=== PATIENT | male | born 1980 | race Caucasian/White ===

== ENCOUNTER 2019-11-01 13:19 | Emergency (ER) | payer SELFPAY ==
[~2019-11-01] VITALS: Ht 172.7 cm; Wt 81.8 kg
[~2019-11-01 13:19] MED LIST: KLONOPIN1 MG PO; NORCO 7.5-3251 EACH PO; PHENERGAN25 M1 PO; STOOL SOFTENER250 MG PO
[2019-11-01 13:44] VITALS: Ht 172.7 cm; Wt 81.8 kg
[2019-11-01] MEDS ORDERED: LISINOPRIL20 MG PO (13:45)
[2019-11-01] MEDS ORDERED: OXYCONTIN15 MG PO (13:46)
[2019-11-01] MEDS ORDERED: VALIUM5 MG PO (13:46)
[2019-11-01] MEDS ORDERED: NORVASC10 MG PO (13:47)
[2019-11-01] MEDS ORDERED: OMEPRAZOLE20 M1 PO (13:48)
[2019-11-01 14:40] LABS: HEMATOCRIT 44.3 % (42.0-54.0); HEMOGLOBIN 14.6 g/dL (13.5-17.5); LYMPHOCYTES 7.4 % (15-50); MCV 87.9 fL (80.0-100.0); MEAN PLATELET VOLUME 10.9 fL (7.4-10.4); NEUTROPHILS 84.4 % (40-80); PLATELET COUNT 246 10x3/uL (130-400); RBC 5.04 10x6/uL (4.20-6.10); RDW 13.4 % (11.5-14.5); WBC 10.3 10x3/uL (4.8-10.8)
[2019-11-01 14:47] LABS: ANION GAP 16.1 mmol/L (8-16); CALCIUM 9.4 mg/dL (8.5-10.1); CARBON DIOXIDE 25.4 mmol/L (21.0-32.0); CREATININE - SERUM 2.3 mg/dL (0.6-1.3); POTASSIUM - SERUM 5.5 mmol/L (3.5-5.1)
[2019-11-01 14:50] LABS: BILIRUBIN NEGATIVE (NEGATIVE); GLUCOSE NEGATIVE (NEGATIVE); KETONE NEGATIVE (NEGATIVE); NITRITE NEGATIVE (NEGATIVE); SPECIFIC GRAVITY 1.015 (1.005-1.020); UROBILINOGEN NORMAL (NORMAL)
[2019-11-01 14:53] LABS: ALBUMIN 4.4 g/dL (3.4-5.0); BILIRUBIN - TOTAL 0.45 mg/dL (0.2-1.3); PROTEIN - SERUM 8.2 g/dL (6.4-8.2)
[2019-11-01 15:11] LABS: CREATINE KINASE 262 UL (21-232)
[2019-11-01 15:19] LABS: CKMB 3.3 U/L (0.0-3.6)
[2019-11-01 17:31] VITALS: BP 137/96
== END 2019-11-01 17:32 | disposition home or self-care (01) ==
LOC: D.ER 13:19
PROVIDERS: Family Medicine
DX: E86.0 Dehydration (principal); I10 Essential (primary) hypertension; R52 Pain, unspecified; K21.9 Gastro-esophageal reflux disease without esophagitis

== ENCOUNTER 2019-12-08 18:54 | Emergency (ER) | payer OTHER ==
[~2019-12-08] VITALS: Ht 172.7 cm; Wt 81.8 kg
[~2019-12-08 18:54] MED LIST changes: +LISINOPRIL20 MG PO; +NORVASC10 MG PO; +OMEPRAZOLE20 M1 PO; +OXYCONTIN15 MG PO; +VALIUM5 MG PO
[2019-12-08 18:59] VITALS: Ht 172.7 cm; Wt 81.8 kg
[2019-12-08 20:46] LABS: BILIRUBIN NEGATIVE (NEGATIVE); GLUCOSE NEGATIVE (NEGATIVE); KETONE NEGATIVE (NEGATIVE); NITRITE NEGATIVE (NEGATIVE); UROBILINOGEN NORMAL (NORMAL)
[2019-12-08 21:42] LABS: UDS - AMPHET NEGATIVE QUAL (NEGATIVE); UDS - BARB NEGATIVE QUAL (NEGATIVE); UDS - BENZO NEGATIVE QUAL (NEGATIVE); UDS - COCAINE NEGATIVE QUAL (NEGATIVE); UDS - OPIATE NEGATIVE QUAL (NEGATIVE); UDS - PCP NEGATIVE QUAL (NEGATIVE); UDS - THC NEGATIVE QUAL (NEGATIVE)
[2019-12-08 21:58] VITALS: BP 132/84
== END 2019-12-08 21:59 | disposition home or self-care (01) ==
LOC: D.ER 18:54
PROVIDERS: Emergency Medicine
DX: T14.8XXA Other injury of unspecified body region, initial encounter (principal); S70.02XA Contusion of left hip, initial encounter; V29.40XA Motorcycle driver injured in collision with unspecified motor vehicles in traffic accident, initial encounter; Y93.9 Activity, unspecified; Y92.9 Unspecified place or not applicable; M54.5 Low back pain; M79.602 Pain in left arm; I10 Essential (primary) hypertension; K21.9 Gastro-esophageal reflux disease without esophagitis

== ENCOUNTER 2019-12-13 17:48 | Emergency (ER) | payer SELFPAY ==
[~2019-12-13] VITALS: Ht 172.7 cm; Wt 81.8 kg
[2019-12-13 17:55] VITALS: Ht 172.7 cm; Wt 81.8 kg
[2019-12-13 22:46] VITALS: BP 130/84
== END 2019-12-13 22:47 | disposition home or self-care (01) ==
LOC: D.ER 17:48
DX: S70.02XA Contusion of left hip, initial encounter (principal); V29.60XA Unspecified motorcycle rider injured in collision with unspecified motor vehicles in traffic accident, initial encounter; I10 Essential (primary) hypertension; K21.9 Gastro-esophageal reflux disease without esophagitis

== ENCOUNTER 2019-12-14 14:23 | Observation (INO) | payer OTHER ==
[~2019-12-14] VITALS: Ht 172.7 cm; Wt 81.8 kg
[2019-12-14 16:53] LABS: BASOPHILS 0.2 % (0-2); EOSINOPHILS 1.8 % (0-7); HEMATOCRIT 44.3 % (42.0-54.0); HEMOGLOBIN 14.4 g/dL (13.5-17.5); IMMATURE GRANULOCYTES 0.2 % (0-5); LYMPHOCYTES 35.2 % (15-50); MCH 28.9 pg (26.0-34.0); MCHC 32.5 g/dL (31.0-37.0); MEAN PLATELET VOLUME 10.8 fL (7.4-10.4); MONOCYTES 8.6 % (2-11); PLATELET COUNT 243 10x3/uL (130-400); RBC 4.98 10x6/uL (4.20-6.10); RDW 13.5 % (11.5-14.5); WBC 6.1 10x3/uL (4.8-10.8)
[2019-12-14 17:00] LABS: CALCIUM 8.9 mg/dL (8.5-10.1); CARBON DIOXIDE 28.2 mmol/L (21.0-32.0); CREATININE - SERUM 1.3 mg/dL (0.6-1.3); POTASSIUM - SERUM 4.2 mmol/L (3.5-5.1)
[2019-12-14 17:06] LABS: ALBUMIN 4.2 g/dL (3.4-5.0); BILIRUBIN - TOTAL 0.42 mg/dL (0.2-1.3); PROTEIN - SERUM 7.8 g/dL (6.4-8.2)
[2019-12-14 17:14] LABS: APTT 26.8 SECONDS (22.8-39.4); INR 0.97 (0.85-1.17); PROTIME 12.8 SECONDS (11.6-15.0)
[2019-12-14 20:08] VITALS: BP 122/63
[2019-12-14 20:14] LABS: BILIRUBIN NEGATIVE (NEGATIVE); KETONE NEGATIVE (NEGATIVE); NITRITE NEGATIVE (NEGATIVE); UROBILINOGEN NORMAL (NORMAL)
[2019-12-14 23:46] VITALS: BP 136/94
[2019-12-15] VITALS (8 sets, daily range): BP systolic 127–152; BP diastolic 87–103; Ht 172.7 cm; Wt 81.8 kg
--- NOTE | 2019-12-15 01:04 | NUR ---
contact infor [phone]
[2019-12-15 07:14] LABS: BASOPHILS 0.2 % (0-2); EOSINOPHILS 1.9 % (0-7); HEMATOCRIT 42.5 % (42.0-54.0); HEMOGLOBIN 13.5 g/dL (13.5-17.5); IMMATURE GRANULOCYTES 0.2 % (0-5); LYMPHOCYTES 35.4 % (15-50); MCH 28.4 pg (26.0-34.0); MCHC 31.8 g/dL (31.0-37.0); MCV 89.3 fL (80.0-100.0); MEAN PLATELET VOLUME 11.2 fL (7.4-10.4); MONOCYTES 8.7 % (2-11); NEUTROPHILS 53.6 % (40-80); PLATELET COUNT 226 10x3/uL (130-400); RBC 4.76 10x6/uL (4.20-6.10); RDW 13.4 % (11.5-14.5); WBC 4.7 10x3/uL (4.8-10.8)
[2019-12-15 08:02] LABS: CALC OSMOLALITY 280 mosm/kg (275-300); CALCIUM 9.1 mg/dL (8.5-10.1); CHLORIDE - SERUM 106 mmol/L (98-107); CREATININE - SERUM 1.1 mg/dL (0.6-1.3); GLUCOSE 92 mg/dL (74-106); MAGNESIUM - SERUM 2.3 mg/dL (1.8-2.4); PHOSPHOROUS 3.5 mg/dL (2.5-4.9); POTASSIUM - SERUM 4.5 mmol/L (3.5-5.1); SODIUM 139 mmol/L (136-145); UREA NITROGEN 20 mg/dL (7-18); eGFR NON AFRICAN AMERICAN 78 mL/min (90-120)
--- NOTE | 2019-12-15 10:20 | NUR ---
PT REQUESTED IV RESITED TD/T LOCATION
--- NOTE | 2019-12-15 13:45 | NUR ---
RECIEVED PT FROM ER. PT A&O X4. PIV IN LEFT FOREARM, S/L, NO REDNESS OR SWELLING. PT C/O PAIN /. EDUCATED PT ON ISP USE AFTER PROCEDURE AND CL AND NEEDS, VERBALIZED UNDERSTANDING. BED LOW, RAILS X2. CL IN REACH. WILL CONTINUE TO MONITOR.
--- NOTE | 2019-12-15 13:47 | NUR ---
REPORT TO JOHNNIE KURTZ
--- NOTE | 2019-12-15 14:00 | NUR ---
ADMIT TO ROOM #1212, CONDITION STABLE
--- NOTE | 2019-12-15 17:35 | NUR ---
PT REFUSES TO SIGN PROCEDURE CONSENT UNTIL HE SPEAKS WITH SURGEON. PT REFUSES BLOOD CONSENT DUE TO RELIGOUS REASONS. PT SIGNED ALL OTHER CONSENTS.
[2019-12-16] VITALS (12 sets, daily range): BP systolic 103–136; BP diastolic 56–89
[2019-12-16 06:45] LABS: BASOPHILS 0.2 % (0-2); EOSINOPHILS 2.1 % (0-7); HEMATOCRIT 42.8 % (42.0-54.0); IMMATURE GRANULOCYTES 0.2 % (0-5); LYMPHOCYTES 31.8 % (15-50); MCH 28.7 pg (26.0-34.0); MCHC 32.7 g/dL (31.0-37.0); MCV 87.7 fL (80.0-100.0); MEAN PLATELET VOLUME 10.9 fL (7.4-10.4); MONOCYTES 10.9 % (2-11); NEUTROPHILS 54.8 % (40-80); PLATELET COUNT 226 10x3/uL (130-400); RBC 4.88 10x6/uL (4.20-6.10); RDW 13.2 % (11.5-14.5); WBC 4.8 10x3/uL (4.8-10.8)
[2019-12-16 06:56] LABS: CALC OSMOLALITY 278 mosm/kg (275-300); CALCIUM 8.9 mg/dL (8.5-10.1); CHLORIDE - SERUM 104 mmol/L (98-107); CREATININE - SERUM 1.1 mg/dL (0.6-1.3); GLUCOSE 85 mg/dL (74-106); PHOSPHOROUS 3.7 mg/dL (2.5-4.9); SODIUM 139 mmol/L (136-145); UREA NITROGEN 18 mg/dL (7-18); eGFR NON AFRICAN AMERICAN 78 mL/min (90-120)
--- NOTE | 2019-12-16 07:41 | NUR ---
PT SITTING UP IN BED, A&O X4. EKG COMPLETED. PT C/O PAIN 06/28. PT COMMUNICATED THAT HE NEEDED TO SPEAK WITH MD PRIOR TO SX, EDUCATED THAT SURGEON WOULD BE AVAILABLE SHORTLY TO SPEAK WITH HIM. HELD BP MEDS. PT DENIES FURTHER NEEDS. WILL CONTINUE TO MONITOR.
--- NOTE | 2019-12-16 09:52 | NUR ---
GAVE PT PREOP MEDS WITH A SIP OF WATER, PT TOLERATED WELL. BED LOW, CL IN REACH.
[2019-12-16 10:17] LABS: ALBUMIN 3.8 g/dL (3.4-5.0); ALKALINE PHOSPHATASE 68 U/L (30-120); ALT (SGPT) 22 U/L (10-68); BILIRUBIN - TOTAL 0.51 mg/dL (0.2-1.3); CALC OSMOLALITY 279 mosm/kg (275-300); CALCIUM 8.6 mg/dL (8.5-10.1); CARBON DIOXIDE 29.4 mmol/L (21.0-32.0); CHLORIDE - SERUM 104 mmol/L (98-107); CREATININE - SERUM 1.1 mg/dL (0.6-1.3); GLUCOSE 90 mg/dL (74-106); POTASSIUM - SERUM 4.1 mmol/L (3.5-5.1); PROTEIN - SERUM 6.9 g/dL (6.4-8.2); SODIUM 139 mmol/L (136-145); UREA NITROGEN 17 mg/dL (7-18); eGFR NON AFRICAN AMERICAN 78 mL/min (90-120)
--- NOTE | 2019-12-16 12:10 | NUR ---
RECIEVED PT FROM PACU, VS WNL, PT AWAKE AND ABLE TO ANSWER QUESTIONS. SPOUSE IN ROOM. DRESSING ON LEFT THIGH, C/D/I. HEMAVAC DRAIN IN LEFT HIP, PATENT AND DRAINING. EDUCATED ON PT HAVING TO STAY ONE MORE DAY DUE TO HAVING DRAIN, VERBALIZED UNDERSTANDING. BED LOW, RAILS X2. CL IN REACH. WILL CONTINUE TO MONITOR.
--- NOTE | 2019-12-16 14:30 | NUR ---
REMOVED PIV FROM RIGHT FOREARM, CATHETER INTACT, PT TOLERATED WELL. PT HAS PIV IN LEFT WRIST, INSERTED IN PRE OP, PATENT AND INFUSING, NO REDNESS OR SWELLING. WILL CONTINUE TO MONITOR.
[2019-12-17 05:00] VITALS: BP 131/68
[2019-12-17 07:24] VITALS: BP 125/84
--- NOTE | 2019-12-17 08:06 | NUR ---
ALERT AND ORIENTED X4 WITH DRESSIGN DRY AND INTACT TO LEFT HIP. NO PERIPHERAL EDEMA WITH PEDAL PULSES NOTED. IVF INF;USING TO LEFT WRIST AT PRESCRIBED RATE. RATES PAIN5/10 AT THIS TIME. ENCOURAGED TO USE INCENTIVE SPIRMOETER AND CALL LIGHT FOR ASSSIST. RAH DRAIN INTACT TO LEFT HIP WITH SEROUS DRAINAGE NOTED.
[2019-12-17 08:35] LABS: BASOPHILS 0 % (0-2); EOSINOPHILS 0.3 % (0-7); HEMATOCRIT 39.8 % (42.0-54.0); HEMOGLOBIN 13.2 g/dL (13.5-17.5); IMMATURE GRANULOCYTES 0.3 % (0-5); MCH 28.9 pg (26.0-34.0); MCHC 33.2 g/dL (31.0-37.0); MCV 87.3 fL (80.0-100.0); MONOCYTES 9.2 % (2-11); NEUTROPHILS 67.2 % (40-80); PLATELET COUNT 256 10x3/uL (130-400); RBC 4.56 10x6/uL (4.20-6.10); RDW 13.1 % (11.5-14.5)
[2019-12-17 08:37] LABS: WBC 6.6 10x3/uL (4.8-10.8)
[2019-12-17 08:58] LABS: CALC OSMOLALITY 281 mosm/kg (275-300); CARBON DIOXIDE 27.3 mmol/L (21.0-32.0); CHLORIDE - SERUM 105 mmol/L (98-107); CREATININE - SERUM 1.1 mg/dL (0.6-1.3); GLUCOSE 96 mg/dL (74-106); MAGNESIUM - SERUM 2.1 mg/dL (1.8-2.4); PHOSPHOROUS 3.7 mg/dL (2.5-4.9); POTASSIUM - SERUM 3.8 mmol/L (3.5-5.1); SODIUM 141 mmol/L (136-145); UREA NITROGEN 16 mg/dL (7-18); eGFR NON AFRICAN AMERICAN 78 mL/min (90-120)
[2019-12-17 11:33] VITALS: BP 159/99
--- NOTE | 2019-12-17 11:57 | MORECARE ---
CASE MANAGEMENT DISCHARGE SUMMARY PATIENT: BUCK CAM UNIT: [id number] ADM DATE: 12/14/19 AGE: 39 : 78 SEX: M ROOM/BED: D.1212 AUTHOR: ROSALINDA GOSS PHYSICIAN: REFERRING PHYSICIAN: MUNA HOLLIDAY MD DATE OF SERVICE: 12/17/19 Discharge Plan Patient Name: BUCK CAM Facility: [facility]:[place] : 1980 Planned Disposition: Home Anticipated Discharge Date: 12/17/19 Discharge Date: Expected LOS: 3 Initial Reviewer: [email or web address] Initial Review Date: 12/15/2019 Generated: 12/17/19 12:56 pm DCP- Discharge Planning Updated by [email or web address]: María Vilchis on 12/17/19 10:[address] CM met with patient to discuss initial discharge planning. Patient is in agreement to proceed with the assessment. Patient reports that he lives at home independently with his , Uzma Cam ([phone]). Patient is alert/oriented. Stairs/steps: 3 w/rail. PCP: Dr. Cao. Pharmacy: [facility]. Patient states he has been able to obtain all of his prescribed medications. HHS: Declines. DME: [facility] (does not use). Patient gives permission to speak with family members/care givers. 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 CM discussed the availability of HH, Rehab, SNF, OP Therapy, DME services. Patient denies the need for additional services at this time and feels safe returning to previous environment. Patient denies hospitalization within the past 30 days. 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 Transportation at time of discharge: , Uzma. CM will follow and assist PRN with DC plans. Patient Name: BUCK CAM Page [phone] at 1157 All edits/amendments must be made on the electronic document DICTATION DATE: 12/17/19 1156 ALLERGIST/IMMUNOLOGIST: RON 12/17/19 1156 RPT#: [id number] DC DATE: STATUS: ADM IN [facility] [address] [place] [address] END OF REPORT
--- NOTE | 2019-12-17 12:42 | NUR ---
ROBERT COMPLAINS OF LEFT LEG PAIN WITH DRESSING INTACT. OXYCODONE GIVEN FOR PAIN 10/28 AND DENIES WANTING ICE PACK AT THIS TIME.
[2019-12-17] MEDS ORDERED: CLEOCIN HCL300 MG PO (13:06)
[2019-12-17] MEDS ORDERED: OXYCODONE HCL10 MG PO (13:07)
--- NOTE | 2019-12-17 14:26 | NUR ---
IV DISCONTINUED AND VERBALIZED UNDERSTANDING OF DISCHARGE INSTRUCTIONS.SUTURE REMOVED FROM HEMOVAC WITH HEMOVAC REMOVED WITH MEPILEX DRESSING APPLIED TO LEFT HIP WITH DRESSING CHANGED TO HIP WELL. MARIELOS INTACT W/O ANY S/S OF INFECTION OR DRAINAGE.
--- NOTE | 2019-12-17 14:48 | MORECARE ---
CASE MANAGEMENT DISCHARGE SUMMARY PATIENT: BUCK CAM UNIT: [id number] ADM DATE: 12/14/19 AGE: 39 : 78 SEX: M ROOM/BED: D.1212 AUTHOR: ROSALINDA GOSS PHYSICIAN: REFERRING PHYSICIAN: MUNA HOLLIDAY MD DATE OF SERVICE: 12/17/19 Discharge Plan Patient Name: BUCK CAM Facility: [facility]:[place] : 1980 Planned Disposition: Home Anticipated Discharge Date: 12/17/19 Discharge Date: Expected LOS: 3 Initial Reviewer: [email or web address] Initial Review Date: 12/15/2019 Generated: 12/17/19 3:48 pm DCP- Discharge Planning Updated by [email or web address]: María Vilchis on 12/17/19 10:[address] CM met with patient to discuss initial discharge planning. Patient is in agreement to proceed with the assessment. Patient reports that he lives at home independently with his , Uzma Cam ([phone]). Patient is alert/oriented. Stairs/steps: 3 w/rail. PCP: Dr. Cao. Pharmacy: [facility]. Patient states he has been able to obtain all of his prescribed medications. HHS: Declines. DME: [facility] (does not use). Patient gives permission to speak with family members/care givers. 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 CM discussed the availability of HH, Rehab, SNF, OP Therapy, DME services. Patient denies the need for additional services at this time and feels safe returning to previous environment. Patient denies hospitalization within the past 30 days. Patient denies the use of community resources SALES PROMOTER. Transportation at time of discharge: , Uzma. CM will follow and assist PRN with DC plans. Last DP export: 12/17/19 10:57 a Patient Name: BUCK CAM Page [phone] at 1448 All edits/amendments must be made on the electronic document DICTATION DATE: 12/17/19 1448 FOOD SERVICE REPRESENTATIVE: RON 12/17/19 1448 RPT#: [id number] DC DATE: STATUS: ADM IN [facility] [address] [place] [address] END OF REPORT
--- NOTE | 2019-12-17 14:52 | NUR ---
DISCHARGED UNDER CARE OF FAMILY
--- NOTE | 2019-12-17 17:21 | MORECARE ---
CASE MANAGEMENT DISCHARGE SUMMARY PATIENT: BUCK CAM UNIT: [id number] ADM DATE: 12/14/19 AGE: 39 : [birth year] SEX: M ROOM/BED: D.1212 AUTHOR: ROSALINDA GOSS PHYSICIAN: REFERRING PHYSICIAN: MUNA HOLLIDAY MD DATE OF SERVICE: 12/17/19 Discharge Plan Patient Name: BUCK CAM Facility: [facility]:[place] : 1980 Planned Disposition: Home Anticipated Discharge Date: 12/17/19 Discharge Date: 12/17/2019 Expected LOS: 3 Initial Reviewer: [id number] Initial Review Date: 12/15/2019 Generated: 12/17/19 6:20 pm DCP- Discharge Planning Updated by [email or web address]: María Vilchis on 12/17/19 10:[address] CM met with patient to discuss initial discharge planning. Patient is in agreement to proceed with the assessment. Patient reports that he lives at home independently with his , Uzma Cam ([phone]). Patient is alert/oriented. Stairs/steps: 3 w/rail. PCP: Dr. Cao. Pharmacy: [facility]. Patient states he has been able to obtain all of his prescribed medications. HHS: Declines. DME: [facility] (does not use). Patient gives permission to speak with family members/care givers. 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 CM discussed the availability of HH, Rehab, SNF, OP Therapy, DME services. Patient denies the need for additional services at this time and feels safe returning to previous environment. Patient denies hospitalization within the past 30 days. Patient denies the use of community resources FLUME MAKER. Transportation at time of discharge: , Uzma. CM will follow and assist PRN with DC plans. Last DP export: 12/17/19 1:48 p Patient Name: BUCK CAM Page [phone] at 1721 All edits/amendments must be made on the electronic document DICTATION DATE: 12/17/191720 HORSEBACK RIDING INSTRUCTOR: RON 12/17/191720 RPT#: [id number] DC DATE:12/17/19 STATUS: DIS IN [facility] [address] [place] [address] END OF REPORT
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
== END 2019-12-17 14:52 | disposition home or self-care (01) ==
LOC: D.ER 14:23 → D.M3 20:38 → D.EDHOLD 20:38 → OBSVTIME 20:38 → D.EDHOLD 12-15 03:51 → D.M3 12-15 13:53
PROVIDERS: Anesthesiology; Family Medicine; ADMIT Family Medicine; ATTEND Family Medicine
DX: S70.02XA Contusion of left hip, initial encounter (principal); I10 Essential (primary) hypertension; G89.29 Other chronic pain; T14.8XXA Other injury of unspecified body region, initial encounter; V29.9XXA Motorcycle rider (driver) (passenger) injured in unspecified traffic accident, initial encounter; Y93.9 Activity, unspecified; Y92.9 Unspecified place or not applicable; S70.12XA Contusion of left thigh, initial encounter